=== PATIENT | male | born 1960 ===

== ENCOUNTER → 2016-05-20 | Outpatient (CLI) | payer OTHER ==
[~2016-05-20] MED LIST: GADAVIST IV PRN; MULT-506 PO; OMEP20CA9 PO; PRLSR20 PO
--- NOTE | 2016-05-20 09:54 | DIAGNOSTIC IMAGING REPORT ---
MRI OF THE BRAIN WITHOUT AND WITH IV CONTRAST CLINICAL HISTORY: Dizziness. Loss of balance. COMPARISON STUDY: No previous studies for comparison. TECHNIQUE: Utilizing a 1.5 Sabiha magnet and dedicated coil, multiplanar, multiecho imaging of the brain was performed pre and postcontrast administration. IV administration of 8 mL of Gadavist contrast was uneventful. FINDINGS: There are no areas of restricted diffusion. No acute intracranial hemorrhage, midline shift or mass effect is present. Brain volume is normal for age. Ventricular system is normal. Basilar cisterns are patent. There are no extra axial collections. Flow-voids for the major intracranial vessels are present. There are no intracranial masses or areas of pathologic enhancement. There are numerous scattered white matter T2 hyperintense foci. Calvarial signal is maintained. There is no fluid within the mastoid air cells. No mass or abnormal enhancement is identified within the internal auditory canals on this nondedicated exam. There is mild mucosal thickening of the ethmoid sinuses. IMPRESSION: 1. No acute intracranial findings. 2. No intracranial masses or pathologic enhancement. 3. Scattered white matter T2 hyperintense foci which likely reflect mild to moderate small vessel disease. Electronically signed by: Antwon Couch M.D. 05/20/2016 9:52 AM
== END | disposition home or self-care (01) ==
LOC: C.MRI 08:57
PROVIDERS: ATTEND Psychiatry & Neurology Neurology
DX: R42 Dizziness and giddiness (principal)

== ENCOUNTER → 2017-02-05 | Outpatient (CLI) | payer OTHER ==
[~2017-02-05] MED LIST changes: -GADAVIST IV PRN; -OMEP20CA9 PO
--- NOTE | 2017-02-05 08:37 | DIAGNOSTIC IMAGING REPORT ---
(RENAL)RETROPERITON COMP CLINICAL HISTORY: 56 years-old Male presenting with right renal mass, prostate cancer screening. TECHNIQUE: Real-time grayscale and limited color Doppler ultrasound imaging of the kidneys and bladder was performed. COMPARISON: 04/19/2015 and MR from 05/01/2016. FINDINGS: Right kidney: Normal echogenicity. Right kidney measures 10.9 cm. No hydronephrosis. 1.6 x 1.3 x 1.5 cm echogenic lesion at the upper pole laterally. This correlates with the site of the renal mass on CT from 01/19/2015. This mass is similar in size to the prior CT. A smaller 8 mm echogenic region is noted at the lower pole. Normal perfusion. Left kidney: Normal echogenicity. Left kidney measures 10.4 cm. No hydronephrosis. No convincing evidence of calculus or mass. Normal perfusion. Bladder: Decompressed. Other: None. IMPRESSION: 1. 1.6 cm right renal echogenic mass unchanged since 2014. This is remains concerning for a renal cell carcinoma despite not significantly changed since 2014. Given the previous evidence of T2 hypointensity and enhancement on MR, differential considerations include papillary renal cell carcinoma, reninoma, lipid poor angiomyolipoma, or solitary fibrous tumor. 2. Smaller 8 mm echogenic right renal mass also unchanged from prior. Electronically signed by: Iftikhar Guardado M.D. 02/05/2017 8:36 AM Dictated Date/Time: 02/05/2017 8:11 AM
== END | disposition home or self-care (01) ==
LOC: C.ULTR 07:37
PROVIDERS: ATTEND Urology
DX: N28.89 Other specified disorders of kidney and ureter (principal); Z12.5 Encounter for screening for malignant neoplasm of prostate

== ENCOUNTER → 2017-02-14 | Day surgery (SDC) | payer OTHER ==
[2017-01-28 08:45] VITALS: BMI 23.0
[~2017-02-14] VITALS: Ht 185.4 cm; Wt 82.0 kg
[~2017-02-14] MED LIST changes: +FENTANYL CITRATE INJ 50 MCG/1 ML 2 ML VIAL ONE; +MIDAZOLAM HCL 5 MG/ML 1 ML VIAL ONE; +SODIUM CHLORIDE 0.9% 500ML 500 ML IV ONE
[2017-02-14 09:23] VITALS: Ht 185.4 cm; Wt 82.0 kg
--- NOTE | 2017-02-14 09:38 | Endo History and Physical ---
History & Physical Date of Service: Feb 14, 2017. Chief Complaint: SCREEENING Referring Physician: PAT JENSEN History of Present Illness 56 yo male who presents for screening colonoscopy. Past Surgical History Hx Cardiac Surgery: No Hx Internal Defibrillator: No Hx Pacemaker: No Hx Abdominal Surgery: Yes (APPY) Hx of Implantable Prosthesis: No Hx Post-Op Nausea and Vomiting: No Hx Cancer Surgery: No Hx Thoracic Surgery: No Hx Orthopedic: No Hx Urinary Tract Surgery: No Family History None Social History Smoking Status: Never Smoker Hx Substance Use: No Hx Alcohol Use: Yes (OCCASIONAL) Allergies Coded Allergies: No Known Allergies (Unverified , 02/14/17) Current Medications Reported Home Medications Medications Dose Route/Sig Max Daily Dose Days Date Category Prilosec (Omeprazole) 20 Mg Capcr 20 Mg PO QAM 01/28/17 Reported Multivitamin (Multivitamins) Tab 1 Tab PO QAM 12/18/14 Reported Vital Signs Weight (Kilograms): 82.00 Height (Feet): 6 Height (Inches): 1 Date Time Temp Pulse Resp B/P (MAP) Pulse Ox O2 Delivery O2 Flow Rate FiO2 02/14/17 09:24 37.0 73 18 108/71 (83) 96 Room Air Physical Exam General Appearance: WD/WN, no apparent distress Respiratory/Chest: Auscultation: breath sounds normal Cardiovascular: Heart Auscultation: RRR Abdomen: Bowel Sounds: normal Inspection & Palpation: soft, non-distended, no tenderness, guarding & rebound Assessment and Plan Assessment: 56 yo male who presents for screening colonoscopy. Plan: Proceed with colonoscopy.
--- NOTE | 2017-02-14 10:14 | GI REPORT ---
Procedure Date: 02/14/2017 9:35 AM Procedure: Colonoscopy Indications: Screening for colorectal malignant neoplasm Medicines: Fentanyl 100 micrograms IV, Midazolam 4 mg IV Complications: No immediate complications. Estimated Blood Loss: Estimated blood loss: none. Procedure: Pre-Anesthesia Assessment: - Prior to the procedure, a History and Physical was performed, and patient medications and allergies were reviewed. The patient's tolerance of previous anesthesia was also reviewed. The risks and benefits of the procedure and the sedation options and risks were discussed with the patient. All questions were answered, and informed consent was obtained. Prior Anticoagulants: The patient has taken no previous anticoagulant or antiplatelet agents. ASA Grade Assessment: II - A patient with mild systemic disease. After reviewing the risks and benefits, the patient was deemed in satisfactory condition to undergo the procedure. After I obtained informed consent, the scope was passed under direct vision. Throughout the procedure, the patient's blood pressure, pulse, and oxygen saturations were monitored continuously. The scope was introduced through the anus and advanced to the terminal ileum. The colonoscopy was performed without difficulty. The patient tolerated the procedure well. The quality of the bowel preparation was good. The terminal ileum, ileocecal valve, appendiceal orifice, and rectum were photographed. Findings: Non-bleeding internal hemorrhoids were found during retroflexion. The hemorrhoids were small. The exam was otherwise without abnormality. Impression: - Non-bleeding internal hemorrhoids. - The examination was otherwise normal. - No specimens collected. Recommendation: - Resume previous diet. - Continue present medications. - Repeat colonoscopy in 10 years for surveillance. - Return to primary care physician as previously scheduled. Miki Almanza, DO 02/14/2017 10:13:51 AM This report has been signed electronically. Note Initiated On: 02/14/2017 9:35 AM I attest to the content of the Intraoperative Record and orders documented therein, exceptions below
--- NOTE | 2017-02-14 10:22 | Discharge Instructions ---
Endoscopy Patient Instructions Date / Procedure(s) Performed Feb 14, 2017. Colonoscopy Allergy Information Coded Allergies: No Known Allergies (Unverified , 02/14/17) Discharge Date / Findings Feb 14, 2017. Internal hemorrhoids Medication Instructions OK to resume all medications today as prescribed Reported Home Medications Medications Dose Route/Sig Max Daily Dose Days Date Category Prilosec (Omeprazole) 20 Mg Capcr 20 Mg PO QAM 01/28/17 Reported Multivitamin (Multivitamins) Tab 1 Tab PO QAM 12/18/14 Reported Provider Instructions Activity Restrictions - No exercising or heavy lifting for 24 hours. - Do not drink alcohol the day of the procedure. - Do not drive a car or operate machinery until the day after the procedure. - Do not make any important decisions or sign important papers in 24 hours after the procedure. Following Day: - Return to full activity which may include returning to work/school. Diet Start your diet with liquids and light foods (jello, soup, juice, toast). Then eat your usual diet if not nauseated. Treatment For Common After Affects For mild abdominal pain, bloating, or excessive gas: - Rest - Eat lightly - Lie on right side Follow-Up Information Follow-up with PAT JENSEN as scheduled Anesthesia Information What You Should Know You have had a procedure that required some medicine to reduce anxiety and discomfort. This treatment is called moderate sedation. After receiving the treatment, you may be sleepy, but you will be able to breathe on your own. The effects of the treatment may last for several hours. Follow these instructions along with Activity/Diet recommendations noted above: * Do NOT do anything where dizziness or clumsiness would be dangerous. * Rest quietly at home today, then you can be up and about tomorrow. * Have a responsible person stay with you the rest of today. * You may have had an I.V. today. If so, you may take the dressing off later today. Recommendations Call your doctor if: * Trouble breathing * Continuous vomiting for more than 24 hours * Temperature above 101 degrees * Severe abdominal pain or bloating * Pain not relieved by pain medicine ordered * There is increased drainage or redness from any incision * A large amount of rectal bleeding greater than 2-3 tablespoons. (If you had a polyp/s removed or have hemorrhoids, a small amount of blood - from the rectum is to be expected.) * You have any unanswered questions or concerns. IN THE EVENT OF A SERIOUS EMERGENCY, GO TO THE NEAREST EMERGENCY ROOM Your discharge instructions were prepared by provider Miki Almanza. Patient Instructions Signature Page Hoang Viramontesankit Patient (or Guardian) Signature/Date: I have read and understand the instructions given to me by my caregivers. Caregiver/RN/Doctor Signature/Date: The above-named patient and/or guardian has received patient instructions on this date. + Original Patient Signature Page (only) stays with chart. Please make copy for patient.
[2017-02-14 10:44] VITALS: BP 107/78; PULSE 62; O2SAT 95
== END | disposition home or self-care (01) ==
LOC: C.GI 08:57
PROVIDERS: ATTEND Internal Medicine
DX: Z12.11 Encounter for screening for malignant neoplasm of colon (principal); K64.8 Other hemorrhoids; Z90.89 Acquired absence of other organs

== ENCOUNTER 2017-05-06 05:34 | Inpatient (IN) | payer OTHER ==
[2017-04-23 09:51] VITALS: Ht 185.4 cm; Wt 23.6 kg
--- NOTE | 2017-04-23 10:13 | PAT Medication Instructions ---
Service Date Apr 23, 2017. Current Home Medication List Aspirin (Aspirin Ec), 81 MG PO QPM Multivitamin (Multivitamin), 1 TAB PO QAM Omeprazole (Prilosec), 20 MG PO QAM Medication Instructions For Your Scheduled Surgery - Hold the following medications 10 DAYS prior to surgery per surgeon's instructions: Aspirin (Aspirin Ec), 81 MG PO QPM - Hold the following medications the morning of surgery: Multivitamin (Multivitamin), 1 TAB PO QAM - Take the following medications the morning of surgery with a sip of water OTHERWISE NOTHING TO EAT OR DRINK AFTER MIDNIGHT: Omeprazole (Prilosec), 20 MG PO QAM If you have any questions please call us at [phone] or [phone] or [phone]
--- NOTE | 2017-04-23 10:44 | DIAGNOSTIC IMAGING REPORT ---
CHEST 2 VIEWS ROUTINE HISTORY: 56 years-old Male PAT preoperative exam. No acute chest complaints. COMPARISON: Chest radiograph 04/19/2016 TECHNIQUE: PA and lateral views of the chest FINDINGS: Cardiomediastinal and hilar silhouettes are within normal limits. No pneumothorax, pleural effusion, focal airspace consolidation or overt pulmonary edema. Mild right hemidiaphragmatic elevation. Bones of the chest are grossly intact. IMPRESSION: No acute cardiopulmonary process. The above report was generated using voice recognition software. It may contain grammatical, syntax or spelling errors. Electronically signed by: Siddharth Rivera M.D. 04/23/2017 10:43 AM Dictated Date/Time: 04/23/2017 10:41 AM
[2017-04-23 12:10] LABS: BASO % 0.4 %; BASO ABS # 0.02 K/uL (0-0.2); EOS % 0.6 %; EOS ABS # 0.03 K/uL (0-0.5); HEMATOCRIT 43.7 % (42-52); HEMOGLOBIN 14.2 g/dL (14.0-18.0); LYMPH ABS # 1.72 K/uL (1.2-3.4); MEAN CELL VOLUME 85.7 fL (80-100); MEAN CORPUSCULAR HEMOGLOBIN 27.8 pg (25-34); MEAN CORPUSCULAR HGB CONC 32.5 g/dl (32-36); MEAN PLATELET VOLUME 11.3 fL (7.4-10.4); MONO % 8.6 %; MONO ABS # 0.41 K/uL (0.11-0.59); NEUT % 54.4 %; PLATELET COUNT 162 K/uL (130-400); RED CELL DISTRIBUTION WIDTH CV 12.8 % (11.5-14.5); RED CELL DISTRIBUTION WIDTH SD 40.3 fL (36.4-46.3); WHITE BLOOD COUNT 4.78 K/uL (4.8-10.8)
[2017-04-23 13:18] LABS: CALCIUM 9.2 mg/dl (8.5-10.1); CREATININE 0.82 mg/dl (0.60-1.40); POTASSIUM 4.1 mmol/L (3.5-5.1)
[~2017-05-06] VITALS: Ht 185.4 cm; Wt 23.6 kg
[2017-05-06] VITALS (9 sets, daily range): BP systolic 106–125; BP diastolic 72–93; PULSE 78–93; TEMP 36.2–37.1; O2SAT 96–99
[~2017-05-06 05:34] MED LIST changes: +ASPI81TA28 PO; -FENTANYL CITRATE INJ 50 MCG/1 ML 2 ML VIAL ONE; -MIDAZOLAM HCL 5 MG/ML 1 ML VIAL ONE; -SODIUM CHLORIDE 0.9% 500ML 500 ML IV ONE
[2017-05-06] MEDS ORDERED: CEFAZOLIN 2000MG IV PUSH 10 ML IV SCH (06:00)
[2017-05-06] MEDS ORDERED: LACTATED RINGER'S 1000ML 1,000 ML IV SCH (06:00)
[2017-05-06] MEDS ORDERED: ONDANSETRON INJ 2 MG/ML 2 ML VIAL IV PRN (06:45)
[2017-05-06] MEDS ORDERED: ATROPINE SULFATE 0.1 MG/ML 5ML SYR IV PRN (06:45)
[2017-05-06] MEDS ORDERED: SCOPOLAMINE 1.5 MG TDSY TD SCH (06:45)
[2017-05-06] MEDS ORDERED: METOCLOPRAMIDE HCL INJ 5 MG/ML 2 ML VIAL IV PRN (06:45)
[2017-05-06] MEDS ORDERED: HYDROmorphone INJ 1 MG/ML SYR IV PRN ×2 (06:45→11:15)
[2017-05-06] MEDS ORDERED: FENTANYL CITRATE INJ 50 MCG/1 ML 2 ML VIAL IV PRN (06:45)
[2017-05-06] MEDS ORDERED: EpHEDrine SULFATE INJ 50 MG/ML AMP IV PRN (06:45)
[2017-05-06] MEDS ORDERED: PROMETHAZINE HCL INJ 12.5 MG in SODIUM CHLORIDE 0.9% 50ML 50 ML IV PRN (06:45)
[2017-05-06] MEDS ORDERED: SCOPOLAMINE 1.5 MG TDSY TD ONE (06:46)
[2017-05-06] MEDS ORDERED: ONDANSETRON INJ 2 MG/ML 2 ML VIAL ONE ×2 (06:55→10:55)
[2017-05-06] MEDS ORDERED: PROPOFOL IV EMULSION 10 MG/ML 20 ML VIAL IV ONE (06:55)
[2017-05-06] MEDS ORDERED: FENTANYL CITRATE INJ 50 MCG/1 ML 2 ML VIAL ONE ×3 (06:55→12:00)
[2017-05-06] MEDS ORDERED: DEXAMETHASONE SOD INJ 4 MG/ML VIAL ONE (06:55)
[2017-05-06] MEDS ORDERED: HYDROmorphone INJ 2 MG/ML SYR/VIAL ONE (06:55)
[2017-05-06] MEDS ORDERED: LIDOCAINE HCL 2% 2 ML VIAL (20MG/ML) ONE (06:55)
[2017-05-06] MEDS ORDERED: MIDAZOLAM HCL 1 MG/ML 2ML VIAL ONE (06:55)
[2017-05-06] MEDS ORDERED: ACETAMINOPHEN 1000 MG/100 ML IV IV ONE (07:02)
--- NOTE | 2017-05-06 07:04 | History & Physical Bridge Note ---
H&P Re-Evaluation Bridge Note: I have examined the patient, reviewed the History & Physical and in the interval since the performance of the History & Physical I have noted the following changes of clinical significance: No changes noted
[2017-05-06] MEDS ORDERED: GELATIN SPONGE SZ 100 ONE (07:13)
[2017-05-06] MEDS ORDERED: BUPIVACAINE 0.5 % 5 MG/1 ML MPF 30ML VIAL ONE (07:14)
[2017-05-06] MEDS ORDERED: EpHEDrine SULFATE 50MG/5ML SYR ONE (08:16)
[2017-05-06] MEDS ORDERED: METOCLOPRAMIDE HCL INJ 5 MG/ML 2 ML VIAL ONE (09:10)
[2017-05-06] MEDS ORDERED: MANNITOL 25% 50 ML VIAL ONE (09:36)
[2017-05-06] MEDS ORDERED: ROCURONIUM BROMIDE 10 MG/ML 5 ML VIAL IV ONE (10:53)
[2017-05-06] MEDS ORDERED: SURGICEL ABSORB HEMOSTAT 2IN X 14IN TOP ONE (10:54)
[2017-05-06] MEDS ORDERED: TISSEEL FIBRIN SEALANT 10ML TOP ONE (10:55)
--- NOTE | 2017-05-06 11:22 | [facility] Operative Report ---
Operative Report Operative Date May 06, 2017. Pre-Operative Diagnosis Right 1.9 cm midpole renal mass. Post-Operative Diagnosis Same as preop. Procedure(s) Performed Right Robotic Partial Nephrectomy Surgeon Dr. Usman Moreno Disposal Worker Surgeon(s) WINSTON James; Dr. Cornelius Roque Estimated Blood Loss 250 ML Findings Watertight closure, mass not visible from renal capsule, well described on intraop renal US, no evidence of tumor violation on dissection with good renal hilar clamping, 17 minutes of warm ischemia time. Fluids 1600 cc Specimens A: Fat over tumor B: Right renal mass Drains #10 TIFFANIE drain R side, castillo to gravity Anesthesia GAET + local Complication(s) None Disposition Recovery Room / PACU Indications 56-year-old male with a right-sided enhancing renal mass on active surveillance since December 2014 status post percutaneous biopsy demonstrating possible well- differentiated renal cell carcinoma versus angiomyolipoma. Please see H&P for further details. Seen his young age, good health and persistently suspicious 1.9 cm lesion we are here today for surgical removal for therapy and diagnosis of his mass. Intravenous Ancef provided for antibiotic coverage and SCDs used for DVT prophylaxis. Informed consent reviewed with the patient preoperatively today. Description of Procedure Patient was properly identified and brought into the operative suite after identification of appropriate consent of the chart. General anesthesia with endotracheal intubation was initiated and patient was prepped and draped in the standard fashion for this procedure that is in a gentle right flank up position with his arm in an armboard, axillary roll in place and pressure points well- padded. Full timeout procedure was followed. The table was flexed and Castillo catheter was placed prior to initiation of surgery. Incision was made in the right midclavicular line and a 12 mm visual obturator was used to enter the abdominal cavity with a 0 laparoscope under direct visualization. Abdomen was insufflated to 15 mmHg and save for some adhesions in the right lower quadrant from the patient's prior hernia surgery his anatomy was noted to be normal. 2 seven mm robotic ports and 2 twelve millimeter assistant coach ports were placed. A 5 mm liver retractor port was also placed. The ascending colon was mobilized medially along the white line of Toldt entering the retroperitoneum. Gerota's fascia was easily identified followed by the duodenum which was kocherized using cold scissors. IVC was identified and the psoas muscle was dissected free behind the kidney. Using lateral traction on the kidney dissection was carried cephalad with the gonadal vein being identified and preserved. Small vessels were controlled using cautery or metal clips as necessary. Renal hilum was identified with a single artery and vein as present on imaging. These were skeletonized to allow for control at the time of renal hilar clamping. After adequate medial dissection was performed ultrasound was used to identify the mid pole renal mass which was well-defined on intraoperative drop-in ultrasound. Gerota's fascia was sharply entered and the kidney was generously mobilized within it. At the mid pole of the kidney and the posterior lateral aspect of the tumor was identified using the intraoperative ultrasound with no significant surface markings to indicates its presence. The edges of the tumor were marked on the surface using the ultrasound as a guide. Patient was provided a bolus of mannitol 12.5 g and sutures were placed within the abdomen in preparation for renal clamping. 2 short bulldog clamps were placed on the renal artery and a single short clamp on the vein. Using cold scissors starting approximately 1 cm back from the marked surface the tumor was circumscribed and dissection carried deeply through normal renal parenchyma on direct visualization. At the deepest aspect the capsule of the tumor was partially visualized and plane of dissection was corrected to ensure it was not violated. After this was complete the renal defect was closely inspected with no evidence of abnormal tissue being present. Vessels at the deepest aspect of the renal defect were controlled using a [id number] Vicryl suture anchored with Weck clips at the level of the renal capsule. A small amount of FloSeal was placed within the deep defect and the edges of the renal incision were reapproximated using interrupted suture bolstered with Weck clips. These were tightened over the course of the dissection with improving hemostasis as a closure was accomplished. The defect was closed clamps were removed for a total of 17 minutes of warm ischemia time. Good hemostasis with a minor oozing from the renal defect was appreciated. This improved with an additional suture , tightening of the sutures which were present and some hemostatic materials and pressure. Once excellent hemostasis was appreciated excess suture was removed from the surgical field. Gerota's fascia was closed using a running V lock suture anchored with Weck clips. Renal tumor was placed within an Endo Catch bag and extracted from the lowermost 12 mm port. The lower 7 mm robotic port was used to place a TIFFANIE drain in the right paracolic gutter. Robotic instruments were removed and robot was de-docked. Excess carbon dioxide gas from the abdominal cavity and ports were removed. Endo Catch back was extracted after minimal enlargement of the incision. Some bleeding from the rectus muscle was controlled using closure with a 0 Vicryl suture on a UR 5 needle. 0 Vicryl on a UR 6 was used to close the incision of the remaining 12 mm ports. Skin incisions were closed using Monocryl and Dermabond. 2-0 silk was used to secure the drain in place. Flexion was removed from the table prior to closure. Anesthesia was reversed and patient was transferred to the recovery room in stable condition after placing the TIFFANIE drain to bulb suction. Follow-up care: Patient will be admitted to the floor for standard postoperative management. Surgical assistants in the form of an assistant coach attending surgeon and nurse practitioner were used for assistance with the time dependent and critical control of the renal hilum for hemostasis, passage of instruments and camera, intraoperative retraction and assistance with mobilization of tissues for the sake of surgical patient safety. I attest to the content of the Intraoperative Record and any orders documented therein. Any exceptions are noted below.
[2017-05-06] MEDS ORDERED: CEFAZOLIN SOD 1 GM VIAL ONE (11:31)
[2017-05-06 11:49] LABS: HEMATOCRIT 38.1 % (42-52); MEAN CELL VOLUME 85.4 fL (80-100); MEAN CORPUSCULAR HEMOGLOBIN 29.1 pg (25-34); MEAN PLATELET VOLUME 9.4 fL (7.4-10.4); PLATELET COUNT 173 K/uL (130-400); RED CELL DISTRIBUTION WIDTH CV 12.9 % (11.5-14.5); RED CELL DISTRIBUTION WIDTH SD 39.4 fL (36.4-46.3); WHITE BLOOD COUNT 10.89 K/uL (4.8-10.8)
[2017-05-06 11:51] LABS: MEAN CORPUSCULAR HGB CONC 34.1 g/dl (32-36)
[2017-05-06 12:07] LABS: CALCIUM 8.3 mg/dl (8.5-10.1); CREATININE 1.14 mg/dl (0.60-1.40); POTASSIUM 3.9 mmol/L (3.5-5.1)
[2017-05-06] MEDS: LACTATED RINGER'S 1000ML 1,000 ML IV SCH ×2 (12:08→19:22)
--- NOTE | 2017-05-06 12:41 | Anesthesiology Progress Note ---
Anesthesia Post Op Note Date & Time May 06, 2017 at 12:40 Vital Signs Pain Intensity: 7.0 Vital Signs Past 12 Hours Date Time Temp Pulse Resp B/P (MAP) Pulse Ox O2 Delivery O2 Flow Rate FiO2 05/06/17 12:10 36.2 86 15 114/79 100 Nasal Cannula 2 05/06/17 12:00 78 22 115/80 99 Nasal Cannula 2 05/06/17 11:50 82 12 120/80 99 Mask 10 05/06/17 11:40 80 12 121/76 94 Mask 10 05/06/17 11:30 84 12 121/84 94 Mask 10 05/06/17 11:23 36.2 94 20 95/75 (80) 100 Mask 10 05/06/17 06:00 36.5 78 20 123/93 99 Room Air Notes Mental Status: alert / awake / arousable, participated in evaluation Pt Amnestic to Procedure: Yes Nausea / Vomiting: adequately controlled Pain: adequately controlled Airway Patency, RR, SpO2: stable & adequate BP & HR: stable & adequate Hydration State: stable & adequate Anesthetic Complications: no major complications apparent Doing well, no complaints, VSS.
--- NOTE | 2017-05-06 13:35 | NUR ---
ID NOTE: received postop alert and oriented. Vitals stable. Dermabond x 5 intact. No drainage. Right TIFFANIE drainage bloody. Lungs clear, using triflow. Pain of 7 on 0-10 scale. Call caro within reach. in room. Discharge uncertain at this time.
--- NOTE | 2017-05-06 13:59 | Progress Note ---
Progress Note Date of Service May 06, 2017. Progress Note PM rounds. Patient in room resting, in room, no OOB yet, + nausea, notes pain at extraction port, no flank pain. Labs as below. NAD Good respiratory excursion S1 S2 Soft, ND, minimal tenderness at lowermost incision, no bruising or swelling, drain c/d/1 A/P 56 yo male s/p R robotic partial nephrectomy. Sips of clears until nausea resolved. IV Ofrimev until taking PO, hopefully later. OOBTC, possible ambulation if feels improved. Intraop findings, inpatient plan reviewed with patient and . Last 24 Hours Test 05/06/17 11:37 White Blood Count 10.89 K/uL Red Blood Count 4.46 M/uL Hemoglobin 13.0 g/dL Hematocrit 38.1 % Mean Corpuscular Volume 85.4 fL Mean Corpuscular Hemoglobin 29.1 pg Mean Corpuscular Hemoglobin Concent 34.1 g/dl RDW Standard Deviation 39.4 fL RDW Coefficient of Variation 12.9 % Platelet Count 173 K/uL Mean Platelet Volume 9.4 fL Sodium Level 139 mmol/L Potassium Level 3.9 mmol/L Chloride Level 106 mmol/L Carbon Dioxide Level 26 mmol/L Anion Gap 7.0 mmol/L Blood Urea Nitrogen 12 mg/dl Creatinine 1.14 mg/dl Est Creatinine Clear Calc Drug Dose 83.7 ml/min Estimated GFR () 84.0 Estimated GFR (Non- 72.5 BUN/Creatinine Ratio 10.8 Random Glucose 126 mg/dl Calcium Level 8.3 mg/dl
[2017-05-06] MEDS: ONDANSETRON INJ 2 MG/ML 2 ML VIAL IV PRN ×2 (14:00→19:54)
[2017-05-06] MEDS ORDERED: ACETAMINOPHEN IV 100 ML IV PRN (14:00)
[2017-05-06] MEDS ORDERED: ACETAMINOPHEN 500 MG TAB PO SCH (14:00)
[2017-05-06] MEDS ORDERED: ACETAMINOPHEN IV 100 ML IV ONE (14:15)
[2017-05-06] MEDS: CHECK SCOPOLAMINE PATCH PLACEMENT SCH ×2 (16:00→23:48)
[2017-05-06] MEDS: CEFAZOLIN IV 2,000 MG in SYRINGE 0 ML IV SCH ×2 (16:27→23:48)
[2017-05-06] MEDS ORDERED: NURSING VERBAL MED ORDER ONE (18:00)
[2017-05-06] MEDS: DOCUSATE SODIUM 100 MG CAP PO SCH (21:00)
--- NOTE | 2017-05-06 21:38 | NUR ---
ID: [id number]. Patient denies need for pain medications at this time. Patient on clear liquid diet, experiencing nausea off and on this evening, but states this is improving with rest and Zofran. Lungs are clear, diminished on room air. Lees is intact and patent. TIFFANIE drain and dermabond sites intact. Patient is a x1 assist. Minimal assistance, but patient experienced nausea with movement and gas pains. Encouraged to move as tolerated to combat gas pains. LR infusing per MD order. Discharge plan is uncertain at this time. Call caro in reach, encouraged to ring for assistance. Will continue to monitor for changes.
[2017-05-06] MEDS: OXYCODONE/ACETAMINOPHEN 7.5-325 TAB PO PRN (23:21)
[2017-05-07] MEDS: LACTATED RINGER'S 1000ML 1,000 ML IV SCH ×2 (01:47→08:26)
[2017-05-07 03:51] VITALS: BP 117/73; PULSE 99; TEMP 37; O2SAT 96
[2017-05-07 05:39] LABS: BASO % 0.1 %; BASO ABS # 0.01 K/uL (0-0.2); HEMOGLOBIN 11.6 g/dL (14.0-18.0); IG# 0.03 K/uL (0.00-0.02); LYMPH % 13.3 %; LYMPH ABS # 1.58 K/uL (1.2-3.4); MEAN CORPUSCULAR HGB CONC 34.1 g/dl (32-36); MEAN PLATELET VOLUME 9.5 fL (7.4-10.4); MONO % 11.5 %; MONO ABS # 1.36 K/uL (0.11-0.59); NEUT % 74.8 %; NEUT ABS # 8.89 K/uL (1.4-6.5); PLATELET COUNT 173 K/uL (130-400); RED CELL DISTRIBUTION WIDTH CV 12.9 % (11.5-14.5); RED CELL DISTRIBUTION WIDTH SD 39.8 fL (36.4-46.3); WHITE BLOOD COUNT 11.87 K/uL (4.8-10.8)
[2017-05-07 05:50] LABS: PTT PATIENT 23.8 SECONDS (21.0-31.0)
[2017-05-07 06:17] LABS: CALCIUM 8.2 mg/dl (8.5-10.1); CREATININE 0.84 mg/dl (0.60-1.40); POTASSIUM 3.7 mmol/L (3.5-5.1)
[2017-05-07] MEDS: CHECK SCOPOLAMINE PATCH PLACEMENT SCH ×2 (06:57→15:51)
[2017-05-07] MEDS: CEFAZOLIN IV 2,000 MG in SYRINGE 0 ML IV SCH (07:35)
[2017-05-07 07:43] VITALS: BP 108/66; PULSE 96; TEMP 37.2; O2SAT 96
[2017-05-07] MEDS: OXYCODONE/ACETAMINOPHEN 7.5-325 TAB PO PRN ×2 (07:46→15:10)
[2017-05-07] MEDS ORDERED: OXYC7.5T62 PO (07:52)
[2017-05-07] MEDS ORDERED: CLC100 PO (07:52)
--- NOTE | 2017-05-07 07:53 | Discharge Instructions ---
Discharge Instructions Date of Service May 07, 2017. Admission Reason for Admission: Right Renal Mass Discharge Discharge Diagnosis / Problem: Right renal mass Discharge Goals Goal(s): Decrease discomfort, Improve disease control, Therapeutic intervention Activity Recommendations Activity Limitations: per Instructions/Follow-up section Shower/Bathe: tomorrow 1. Do not lift >15lbs x 6 weeks. 2. No heavy exercise x 6 weeks. You may engage in light activity such as walking and stairs as tolerated. 3. Do not drive x [address] while taking narcotics. 4. Follow-up as scheduled. Please call our office at [phone] if you need to reschedule for any reason. 5. You may resume taking Aspirin in 2 weeks. . . Current Hospital Diet Patient's current hospital diet: Clear Liquid Diet Discharge Diet Recommended Diet: Regular Diet Procedures Procedures Performed: Right Robotic Partial Nephrectomy Pending Studies Studies pending at discharge: yes (right renal mass ) List of pending studies: right renal mass Medical Emergencies . Who to Call and When: Medical Emergencies: If at any time you feel your situation is an emergency, please call 911 immediately. . Non-Emergent Contact Non-Emergency issues call your: Urologist Call Non-Emergent contact if: temperature is above 101.5, your pain is not controlled, your pain is worsening, your pain is unusual for you, your pain is concerning you, you have any medication questions . . "Provider Documentation" section prepared by Susana Stone. . VTE Core Measure Inpt VTE Proph given/why not?: Unfractionated heparin SQ, SCD's [place] Drug Monitoring Program Search Results: patient reviewed within database, no issues identified
[2017-05-07] MEDS: DOCUSATE SODIUM 100 MG CAP PO SCH (08:31)
--- NOTE | 2017-05-07 08:31 | Progress Note ---
Subjective Date of Service: May 07, 2017. Subjective Pt evaluation today including: conversation w/ patient, physical exam, chart review, lab review, review of inpatient medication list Pain: Incision, mild R flank, appropriate postop PO Intake: Seven clears, no emesis, resolved nausea Voiding: castillo catheter in place (urine clear) 56 yo male POD#1 s/p R robotic partial nephrectomy, much improved from yesterday afternoon. He has been OOBTC, no ambulation in halls yet. No emesis, seven clears, had some crackers, well tolerated. Patient anxious to have castillo out and go home later today. Labs reviewed - nl Cr, expected drift in Hb. No other specific c/o. Review of Systems Constitutional: No fever, No chills Eyes: No worsening of vision ENT: No hearing loss Respiratory: No sputum, No shortness of breath Cardiac: No chest pain Abdomen: No nausea, No vomiting Male : No dysuria Neurologic: No memory loss Psychiatric: No depression symptoms Endo: No excessive urination Objective Vital Signs Date Time Temp Pulse Resp B/P (MAP) Pulse Ox O2 Delivery O2 Flow Rate FiO2 05/07/17 07:43 37.2 96 16 108/66 (80) 96 Room Air 05/07/17 03:51 37.0 99 16 117/73 (88) 96 Room Air 05/06/17 23:15 Room Air 05/06/17 23:00 37.1 91 16 125/77 (93) 96 Room Air 05/06/17 19:10 37.0 85 17 119/80 (93) 99 Room Air 05/06/17 16:39 97 Room Air 05/06/17 16:12 36.3 86 17 112/77 (89) 98 Nasal Cannula 2.0 05/06/17 15:46 36.2 93 16 113/77 (89) 99 Nasal Cannula 2.0 05/06/17 15:25 Nasal Cannula 2.0 05/06/17 14:15 84 18 114/76 (89) 97 05/06/17 13:55 80 18 106/72 (83) 97 05/06/17 13:28 Nasal Cannula 2.0 05/06/17 13:15 Nasal Cannula 05/06/17 13:15 36.4 80 12 108/73 (85) 97 Nasal Cannula 2.0 05/06/17 13:00 36.2 78 12 111/77 99 Nasal Cannula 2 05/06/17 12:50 74 12 116/76 99 Nasal Cannula 2 05/06/17 12:40 36.2 74 12 105/78 99 Nasal Cannula 2 05/06/17 12:30 78 12 109/74 99 Nasal Cannula 2 05/06/17 12:20 82 12 110/75 99 Nasal Cannula 2 05/06/17 12:10 36.2 86 15 114/79 100 Nasal Cannula 2 05/06/17 12:00 78 22 115/80 99 Nasal Cannula 2 05/06/17 11:50 82 12 120/80 99 Mask 10 05/06/17 11:40 80 12 121/76 94 Mask 10 05/06/17 11:30 84 12 121/84 94 Mask 10 05/06/17 11:23 36.2 94 20 95/75 (80) 100 Mask 10 Physical Exam General Appearance: WD/WN, no apparent distress ENT: hearing grossly normal Neck: supple, no adenopathy Respiratory/Chest: no respiratory distress, no accessory muscle use Cardiovascular: no JVD Abdomen: soft, + pertinent finding (inc c/d/i, nondistended, minimal incisional tenderness, no bruising) Extremities: non-tender Neurologic/Psychiatric: alert, oriented x 3 Skin: normal color Laboratory Results Last 24 Hours Test 05/06/17 11:37 05/07/17 05:11 White Blood Count 10.89 K/uL 11.87 K/uL Red Blood Count 4.46 M/uL 4.00 M/uL Hemoglobin 13.0 g/dL 11.6 g/dL Hematocrit 38.1 % 34.0 % Mean Corpuscular Volume 85.4 fL 85.0 fL Mean Corpuscular Hemoglobin 29.1 pg 29.0 pg Mean Corpuscular Hemoglobin Concent 34.1 g/dl 34.1 g/dl RDW Standard Deviation 39.4 fL 39.8 fL RDW Coefficient of Variation 12.9 % 12.9 % Platelet Count 173 K/uL 173 K/uL Mean Platelet Volume 9.4 fL 9.5 fL Sodium Level 139 mmol/L 139 mmol/L Potassium Level 3.9 mmol/L 3.7 mmol/L Chloride Level 106 mmol/L 105 mmol/L Carbon Dioxide Level 26 mmol/L 26 mmol/L Anion Gap 7.0 mmol/L 7.0 mmol/L Blood Urea Nitrogen 12 mg/dl 12 mg/dl Creatinine 1.14 mg/dl 0.84 mg/dl Est Creatinine Clear Calc Drug Dose 83.7 ml/min 33.6 ml/min Estimated GFR () 84.0 115.0 Estimated GFR (Non- 72.5 99.3 BUN/Creatinine Ratio 10.8 13.8 Random Glucose 126 mg/dl 110 mg/dl Calcium Level 8.3 mg/dl 8.2 mg/dl Neutrophils (%) (Auto) 74.8 % Lymphocytes (%) (Auto) 13.3 % Monocytes (%) (Auto) 11.5 % Eosinophils (%) (Auto) 0.0 % Basophils (%) (Auto) 0.1 % Neutrophils # (Auto) 8.89 K/uL Lymphocytes # (Auto) 1.58 K/uL Monocytes # (Auto) 1.36 K/uL Eosinophils # (Auto) 0.00 K/uL Basophils # (Auto) 0.01 K/uL Immature Granulocyte % (Auto) 0.3 % Immature Granulocyte # (Auto) 0.03 K/uL Prothrombin Time 10.9 SECONDS Prothromb Time International Ratio 1.0 Activated Partial Thromboplast Time 23.8 SECONDS Partial Thromboplastin Ratio 0.9 Assessment and Plan A/P 56 yo male POD#1 s/p R robotic partial nephrectomy. Doing well. DALI castillo. Advance diet and activity. Limitations and discharge instructions reviewed. If does well with diet and activity today, anticipate DC TIFFANIE and DC home today. Discharge planning: home
[2017-05-07] MEDS ORDERED: HEPARIN SOD 5000 UNIT/0.5 ML CARP SQ SCH (09:00)
[2017-05-07] MEDS ORDERED: PANTOprazole SOD 40 MG TAB PO SCH (09:00)
[2017-05-07 10:55] VITALS: BP 120/73; PULSE 94; TEMP 36.8; O2SAT 95
[2017-05-07] MEDS ORDERED: NURSING VERBAL MED ORDER ONE ×2 (11:00→17:15)
--- NOTE | 2017-05-07 13:01 | Anesthesiology Progress Note ---
Anesthesia Post Op Note Date & Time May 07, 2017 at 13:01 Vital Signs Pain Intensity: 9.0 Vital Signs Past 12 Hours Date Time Temp Pulse Resp B/P (MAP) Pulse Ox O2 Delivery O2 Flow Rate FiO2 05/07/17 10:55 36.8 94 16 120/73 (89) 95 Room Air 05/07/17 07:43 37.2 96 16 108/66 (80) 96 Room Air 05/07/17 07:15 Room Air 05/07/17 03:51 37.0 99 16 117/73 (88) 96 Room Air Notes Mental Status: alert / awake / arousable, participated in evaluation Pt Amnestic to Procedure: Yes Nausea / Vomiting: adequately controlled Pain: adequately controlled Airway Patency, RR, SpO2: stable & adequate BP & HR: stable & adequate Hydration State: stable & adequate Anesthetic Complications: no major complications apparent
[2017-05-07 14:57] VITALS: BP 128/86; PULSE 72; TEMP 36.9; O2SAT 98
[2017-05-07 16:00] VITALS: BP 128/86; PULSE 72; TEMP 36.9; O2SAT 98
[2017-05-07 18:00] VITALS: O2SAT 98
--- NOTE | 2017-05-21 08:25 | Discharge Summary ---
Discharge Summary Date of Service May 21, 2017. Discharge Summary Date of admission: May 06, 2017. Date of discharge: May 07, 2017. Admitting attending: Dr. Usman Malloy. Admitting diagnosis: Right renal mass. 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 Procedures over the course of admission: Right robotic partial nephrectomy. Complications: None. Brief history: Mr. Cortez is a pleasant 56-year-old male with a known history of a right central renal mass which has been observed with relative stability for a couple of years. Please see H&P for further details. Recently, seen his young age and good health, he has undergone a biopsy which demonstrated elements suspicious for carcinoma. He is here today for surgical extirpation for therapy and diagnosis of his lesion. Intravenous antibiotics were provided preoperatively and SCDs used for DVT prophylaxis. Hospital course: Patient underwent an uncomplicated right robotic partial nephrectomy as planned. Please see operative report for further details. Patient was admitted to the floor postoperatively and diet and activity were rapidly advanced. By postoperative day 1. Patient was ambulatory in the hallways, tolerating a regular diet, comfortable on oral pain medication with minimal TIFFANIE output. TIFFANIE was removed as well as the Lees catheter. By the evening of postoperative day 1. Patient was considered stable for discharge home. Please see progress notes for further details. Lab work was stable in the postoperative. Discharge instructions: Patient was instructed to avoid heavy activity until cleared by ourselves. Postoperative limitations appointments are reviewed. Please see discharge instruction sheet and medication list for further details. Patient is instructed to contact our service should he note any fevers, chills , nausea, vomiting or other difficulties after his surgery.
== END 2017-05-07 18:45 | disposition home or self-care (01) | DRG 658 ==
LOC: C.ACU 05:34 → C.MSN 11:10 → ENRESERV 12:14
PROVIDERS: ADMIT Urology; ATTEND Urology
PROC: 8E0W4CZ Robotic Assisted Procedure of Trunk Region, Percutaneous Endoscopic Approach (ICD-10-PCS; principal; 2017-05-06 07:30)
PROC: 0TB04ZZ Excision of Right Kidney, Percutaneous Endoscopic Approach (ICD-10-PCS; principal; 2017-05-06 07:30)
DX: C64.1 Malignant neoplasm of right kidney, except renal pelvis (principal); K21.9 Gastro-esophageal reflux disease without esophagitis; H91.93 Unspecified hearing loss, bilateral; H81.399 Other peripheral vertigo, unspecified ear; I49.3 Ventricular premature depolarization